=== PATIENT | male | born 1935 | race Caucasian/White ===

== ENCOUNTER → 2017-06-14 | Outpatient (CLI) | payer MEDICARE, BC ==
--- NOTE | 2017-06-14 12:05 | MR ---
EXAMINATION TYPE: MR brain wo con DATE OF EXAM: 06/14/2017 11:42 AM. COMPARISON: NONE. HISTORY: Change in mental status. Technique: Multiplanar, multiecho imaging of the brain was obtained without intravenous contrast. FINDINGS: There are generalized changes of sulcal prominence and ventriculomegaly, compatible with a trophic change. This is more marked in the frontal lobes. This distribution can be seen in PICK's dis ease. 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 Midline structures are otherwise unremarkable. There is a normal cr aniocervical junction. There are normal vascular flow voids. The orbits are unremarkable. There is no evidence of a CP angle mass lesion. There is a tiny 8.5 mm area of abnormal signal in the petrous ridge on the right. This may represent a tiny cholesterol granuloma. There is mild, diffuse periventricular white matter change seen on the FLAIR dataset. This is likely secondary to chronic white matter ischemic change. There is no acute focal lesion, mass effect or mid line shift identified. I do not see evidence of intracranial blood. IMPRESSION: 1. ATROPHIC CHANGE MOST MARKED IN THE FRONTAL REGIONS. PLEASE CORRELATE FOR PICK'S DISEASE. 2. 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 3. NO ACUTE INTRACRANIAL ABNORMALITY.
== END | disposition home or self-care (01) ==
LOC: RADMRIMAIN 11:02
PROVIDERS: ATTEND Family Medicine
DX: G31.89 Other specified degenerative diseases of nervous system (principal); R90.89 Other abnormal findings on diagnostic imaging of central nervous system
CPT/HCPCS: 70551